=== PATIENT | female | born 1995 | race Caucasian/White ===

== ENCOUNTER 2022-08-19 12:47 | Emergency (ER) | payer MEDICAID ==
[~2022-08-19] VITALS: Ht 162.6 cm; Wt 68.0 kg
[2022-08-19 12:52] VITALS: BP_SYST 140
--- NOTE | 2022-08-19 13:30 | NUR ---
ER at bedside examining patient.
--- NOTE | 2022-08-19 14:00 | NUR ---
THUMB WRIST MOBILIZER AFFIXED TO RIGHT HAND WITH CAP RETURN LESS THAN 3 SEC.
--- NOTE | 2022-08-19 14:00 | NUR ---
ER at bedside examining patient.
[2022-08-19] MEDS ORDERED: IBUP-1969 PO (14:28)
--- NOTE | 2022-08-19 15:07 | NUR ---
Patient given written and verbal discharge instructions and verbalizes understanding. ER MD discussed with patient the results and treatment provided. Patient in stable condition. ID arm band removed. Rx of IBUPROFEN given. Patient educated on pain management and to follow up with PMD. Opportunity for questions provided and answered. Medication side effect fact sheet provided.
[2022-08-19 15:12] VITALS: BP_SYST 140
== END 2022-08-19 15:07 | disposition home or self-care (01) ==
LOC: SED 12:47
DX: M67.833 Other specified disorders of tendon, right wrist (principal); M25.531 Pain in right wrist; Z79.899 Other long term (current) drug therapy
CPT/HCPCS: 99283

== ENCOUNTER 2024-01-06 18:53 | Emergency (ER) | payer BC, MEDICAID ==
[~2024-01-06] VITALS: Ht 165.1 cm; Wt 63.5 kg
[~2024-01-06 18:53] MED LIST: IBUP-1969 PO
[2024-01-06 19:11] VITALS: BP_SYST 120; PULSE 84; RESP 16; TEMP 98.5; O2SAT 99
[2024-01-06] MEDS ORDERED: LIDOCAINE MPF 1% 50 MG/5 ML AMP INJ ONE (19:15)
[2024-01-06] MEDS ORDERED: BACITRACIN 1 GM OINT TP ONE (19:30)
[2024-01-06 20:19] VITALS: BP_SYST 120; PULSE 84; RESP 16; TEMP 98.5; O2SAT 99
== END 2024-01-06 20:10 | disposition home or self-care (01) ==
LOC: SED 18:53
DX: S81.811A Laceration without foreign body, right lower leg, initial encounter (principal); Z79.899 Other long term (current) drug therapy; W25.XXXA Contact with sharp glass, initial encounter; Y93.89 Activity, other specified; Y92.89 Other specified places as the place of occurrence of the external cause; Y99.8 Other external cause status
CPT/HCPCS: 99282; J2001

== ENCOUNTER 2024-01-13 11:25 | Emergency (ER) | payer BC, MEDICAID ==
[~2024-01-13] VITALS: Ht 165.1 cm; Wt 63.5 kg
[2024-01-13 11:38] VITALS: BP_SYST 121; PULSE 80; RESP 18; TEMP 98.3; O2SAT 98
[2024-01-13] MEDS ORDERED: OMEP20CA15 PO (12:24)
[2024-01-13] MEDS ORDERED: ANT30 PO (12:25)
[2024-01-13] MEDS ORDERED: OMEP40CA20 PO (12:26)
[2024-01-13] MEDS: MAG HYDROX/AL HYDROX/SIMETH 30 ML, DICYCLOMINE HCL 20 MG, LIDOCAINE VISCOUS 2% 15ML (PO... PO ONE (12:36)
[2024-01-13 12:38] VITALS: BP_SYST 121; PULSE 80; RESP 18; TEMP 98.3; O2SAT 98
== END 2024-01-13 12:38 | disposition home or self-care (01) ==
LOC: SED 11:25
DX: S81.811D Laceration without foreign body, right lower leg, subsequent encounter (principal); K21.9 Gastro-esophageal reflux disease without esophagitis; Z48.00 Encounter for change or removal of nonsurgical wound dressing; Z79.899 Other long term (current) drug therapy; X58.XXXD Exposure to other specified factors, subsequent encounter
CPT/HCPCS: 99284; J2001